=== PATIENT | male | born 1950 | race Two or more races ===

== ENCOUNTER 2020-02-13 09:22 | Outpatient (CLI) | payer MEDICARE, MEDICAID | END 2020-02-13 23:59 | disposition home or self-care (01) | LOC: WOU 09:22 | PROVIDERS: ATTEND Podiatrist Foot & Ankle Surgery | DX: S80.812A Abrasion, left lower leg, initial encounter (principal); S80.811A Abrasion, right lower leg, initial encounter; X58.XXXA Exposure to other specified factors, initial encounter; Y92.89 Other specified places as the place of occurrence of the external cause; E11.42 Type 2 diabetes mellitus with diabetic polyneuropathy; E11.65 Type 2 diabetes mellitus with hyperglycemia; Z79.84 Long term (current) use of oral hypoglycemic drugs; B35.1 Tinea unguium; B35.3 Tinea pedis; M20.12 Hallux valgus (acquired), left foot; M20.11 Hallux valgus (acquired), right foot; M20.41 Other hammer toe(s) (acquired), right foot; Z89.421 Acquired absence of other right toe(s) | CPT/HCPCS: G0463 ==

== ENCOUNTER 2020-04-10 14:20 | Outpatient (CLI) | payer MEDICARE, MEDICAID | END 2020-04-10 23:59 | disposition home or self-care (01) | LOC: WOU 14:20 | PROVIDERS: ATTEND Podiatrist Foot & Ankle Surgery | DX: E11.621 Type 2 diabetes mellitus with foot ulcer (principal); L97.512 Non-pressure chronic ulcer of other part of right foot with fat layer exposed; E11.65 Type 2 diabetes mellitus with hyperglycemia; M20.41 Other hammer toe(s) (acquired), right foot; M20.12 Hallux valgus (acquired), left foot; M20.11 Hallux valgus (acquired), right foot; B35.1 Tinea unguium; B35.3 Tinea pedis; Z79.84 Long term (current) use of oral hypoglycemic drugs; Z89.421 Acquired absence of other right toe(s) | CPT/HCPCS: 11042 ==

== ENCOUNTER 2020-04-17 12:30 | Outpatient (CLI) | payer MEDICARE, MEDICAID ==
[2020-04-17] MEDS ORDERED: MUPIROCIN 2% CREAM 15 GM TUBE TP ONE (13:31)
[2020-04-17] MEDS ORDERED: CLOTRIMAZOLE 1% 15 GM TUBE TP ONE (13:36)
== END 2020-04-17 23:59 | disposition home or self-care (01) ==
LOC: WOU 12:30
PROVIDERS: ATTEND Podiatrist Foot & Ankle Surgery
DX: E11.621 Type 2 diabetes mellitus with foot ulcer (principal); L97.512 Non-pressure chronic ulcer of other part of right foot with fat layer exposed; E11.42 Type 2 diabetes mellitus with diabetic polyneuropathy; E11.65 Type 2 diabetes mellitus with hyperglycemia; Z79.84 Long term (current) use of oral hypoglycemic drugs; B35.1 Tinea unguium; B35.3 Tinea pedis; M20.12 Hallux valgus (acquired), left foot; M20.11 Hallux valgus (acquired), right foot; M20.41 Other hammer toe(s) (acquired), right foot; Z89.421 Acquired absence of other right toe(s)
CPT/HCPCS: 11042

== ENCOUNTER 2020-05-22 12:35 | Outpatient (CLI) | payer MEDICARE, MEDICAID ==
[2020-05-22] MEDS ORDERED: MUPIROCIN 2% CREAM 15 GM TUBE TP ONE (13:28)
== END 2020-05-22 23:59 | disposition home or self-care (01) ==
LOC: WOU 12:35
PROVIDERS: ATTEND Podiatrist Foot & Ankle Surgery
DX: E11.621 Type 2 diabetes mellitus with foot ulcer (principal); L97.512 Non-pressure chronic ulcer of other part of right foot with fat layer exposed; E11.42 Type 2 diabetes mellitus with diabetic polyneuropathy; E11.65 Type 2 diabetes mellitus with hyperglycemia; B35.1 Tinea unguium; B35.3 Tinea pedis; M20.12 Hallux valgus (acquired), left foot; M20.11 Hallux valgus (acquired), right foot; Z89.421 Acquired absence of other right toe(s); I10 Essential (primary) hypertension; Z79.84 Long term (current) use of oral hypoglycemic drugs
CPT/HCPCS: 11042

== ENCOUNTER 2020-06-26 12:40 | Outpatient (CLI) | payer MEDICARE, MEDICAID | END 2020-06-26 23:59 | disposition home or self-care (01) | LOC: WOU 12:40 | PROVIDERS: ATTEND Podiatrist Foot & Ankle Surgery | DX: E11.621 Type 2 diabetes mellitus with foot ulcer (principal); L97.512 Non-pressure chronic ulcer of other part of right foot with fat layer exposed; E11.42 Type 2 diabetes mellitus with diabetic polyneuropathy; E11.65 Type 2 diabetes mellitus with hyperglycemia; Z79.84 Long term (current) use of oral hypoglycemic drugs; B35.1 Tinea unguium; B35.3 Tinea pedis; M21.42 Flat foot [pes planus] (acquired), left foot; M20.12 Hallux valgus (acquired), left foot; M20.11 Hallux valgus (acquired), right foot; Z89.421 Acquired absence of other right toe(s) | CPT/HCPCS: 11042; A6209 ==